=== PATIENT | male | born 1960 | race Caucasian/White ===

== ENCOUNTER → 2023-11-03 11:28 | Outpatient (REF) | payer OTHER, SELFPAY | LOC: HWRAD 11:28 | PROVIDERS: ATTENDING PHYSICIAN Family Medicine | DX: S22.39XA Fracture of one rib, unspecified side, initial encounter for closed fracture (principal) | CPT/HCPCS: 71101 ==

== ENCOUNTER → 2025-01-23 10:29 | Outpatient (REF) | payer SELFPAY | LOC: HWRAD 10:29 | PROVIDERS: ATTENDING PHYSICIAN Internal Medicine Cardiovascular Disease; FAMILY PHYSICIAN Family Medicine | DX: E78.2 Mixed hyperlipidemia (principal) | CPT/HCPCS: 75571 ==